=== PATIENT | male | born 1995 | race African-American/Black ===

== ENCOUNTER → 2019-03-03 | Outpatient (CLI) | payer OTHER ==
--- NOTE | 2019-03-03 11:25 | REP ---
Left shoulder series: Three views. History: Pain in the left shoulder. Findings: The glenohumeral and acromioclavicular joints are normally aligned. No fracture or subluxation is seen. No erosive change is appreciated. Periarticular soft tissues are unremarkable. Impression: Negative radiographs of the left shoulder. Electronically Signed by Jamar Stevenson MD 03/03/2019 11:16 A
== END ==
LOC: M RAD 08:53
PROVIDERS: ATTEND Surgery
DX: M25.512 Pain in left shoulder (principal)